=== PATIENT | female | born 1990 | race Caucasian/White ===

== ENCOUNTER 2016-12-24 18:16 | Emergency (ER) | payer BC, MEDICAID ==
[2016-12-24 18:19] VITALS: BP 126/67
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
== END 2016-12-24 19:45 | disposition home or self-care (01) ==
LOC: LL.ED 18:16
DX: M25.511 Pain in right shoulder (principal); E66.9 Obesity, unspecified; F17.210 Nicotine dependence, cigarettes, uncomplicated; M19.90 Unspecified osteoarthritis, unspecified site; H54.7 Unspecified visual loss; Z88.2 Allergy status to sulfonamides
CPT/HCPCS: 81025; 99283

== ENCOUNTER 2019-02-19 17:35 | Emergency (ER) | payer BC, OTHER ==
[2019-02-19 17:43] VITALS: BP 126/84; PULSE 94
[2019-02-19] MEDS ORDERED: Bacitracin/Neomycin/Polymyxin B Oint 0.9 GM U/D Packet TOP ONE ×2 (18:48→18:51)
[2019-02-19] MEDS ORDERED: HYDROmorphone 1 MG/ML Syringe IM ONE (18:52)
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
== END 2019-02-19 19:26 | disposition home or self-care (01) ==
LOC: LL.ED 17:35
DX: S52.112A Torus fracture of upper end of left radius, initial encounter for closed fracture (principal); F17.210 Nicotine dependence, cigarettes, uncomplicated; E66.9 Obesity, unspecified; Z68.41 Body mass index [BMI] 40.0-44.9, adult; Z88.2 Allergy status to sulfonamides; W18.09XA Striking against other object with subsequent fall, initial encounter; Y93.02 Activity, running; Y92.89 Other specified places as the place of occurrence of the external cause
CPT/HCPCS: 73080-LT; 73090-LT; 96372; 99283-25; J1170